=== PATIENT | male | born 1980 | race African-American/Black ===

== ENCOUNTER 2025-01-03 16:40 | Inpatient (IN) | payer OTHER ==
[~2025-01-03] VITALS: Ht 180.3 cm; Wt 122.0 kg
[2025-01-03] MEDS: LORazepam 2 MG/ML VIAL IM ONE (17:07)
[2025-01-03] MEDS: MIDAZOLAM HCL 5 MG/ML VIAL IM ONE (18:34)
[2025-01-03] MEDS: SODIUM CHLORIDE 0.9% 1,000 ML IV ONE ×2 (19:30→20:58)
[2025-01-03 19:36] LABS: PLATELET COUNT (AUTO) 291 K/uL (150-450); RED BLOOD CELL COUNT(AUTO) 4.78 MIL/uL (4.50-5.90); RED CELL DISTRIBUTION WIDTH 15.3 % (11.5-14.5); WHITE BLOOD COUNT (AUTO) 12.9 K/uL (4.5-11.0)
[2025-01-03 19:45] LABS: CALCIUM, TOTAL 9.3 mg/dL (8.8-10.5); CREATININE 1.04 mg/dL (0.60-1.30); GLOMERULAR FILTR. RATE CALC > 60 mL/min (>60); GLUCOSE,RANDOM 87 mg/dL (70-110); SODIUM SERUM 146 mmol/L (136-145); UREA NITROGEN, BLOOD 20 mg/dL (7-18)
[2025-01-03 19:46] LABS: ALCOHOL, BLOOD (SERUM) < 3 mg/dL (0-10)
[2025-01-03 19:53] LABS: RBC MORPHOLOGY COMMENT NORMAL RBC MORPH
[2025-01-03 19:55] LABS: TROPONIN I-HIGH SENSITIVITY 73 ng/L (<76)
[2025-01-03 19:57] LABS: ASPARTATE AMINOTRANSFERASE 64 U/L (15-37); TOTAL PROTEIN, SERUM 7.6 g/dL (6.4-8.2)
[2025-01-03 20:49] LABS: CREATINE KINASE, TOTAL ONLY 3723 U/L (39-308)
[2025-01-03 20:55] LABS: APPEARANCE,URINE CLEAR (CLEAR); GLUCOSE, URINE (UA) NEGATIVE (NEGATIVE); LEUKOCYTE ESTERASE ,URINE NEGATIVE (NEGATIVE); NITRATE,URINE NEGATIVE (NEGATIVE); OCCULT BLOOD,URINE MODERATE (NEGATIVE); PH,URINE DRUG SCREEN 5.5 (5.0-8.0); SPECIFIC GRAVITIY, URINE 1.022 (1.003-1.030)
[2025-01-03 21:03] LABS: ALCOHOL, URINE DRUG SCREEN NEGATIVE (NEGATIVE); AMPHET/METH SCREEN,URINE NEGATIVE (NEGATIVE); BARBITURATE SCREEN, URINE NEGATIVE (NEGATIVE); CANNABINOID SCREEN,URINE NEGATIVE (NEGATIVE); COCAINE SCREEN,URINE NEGATIVE (NEGATIVE); METHADONE SCREEN, URINE NEGATIVE (NEGATIVE)
[2025-01-03 21:28] LABS: SQUAMOUS EPITHELIAL CELL,UR Rare /LPF (None Seen)
[2025-01-03] MEDS ORDERED: ACETAMINOPHEN 325 MG TABLET PO PRN (21:30)
[2025-01-03] MEDS ORDERED: BISACODYL 10 MG RECTAL RECTAL SUPPOSITORY PR PRN (21:30)
[2025-01-03] MEDS ORDERED: ONDANSETRON HCL 4 MG/2 ML VIAL IVP PRN (21:30)
[2025-01-03] MEDS ORDERED: MAGNESIUM HYDROXIDE SUSPENSION 30 ML UDCUP PO PRN (21:30)
[2025-01-03] MEDS ORDERED: ZOLPIDEM TARTRATE 5 MG TABLET PO PRN (21:30)
[2025-01-03] MEDS: MAGNESIUM SULFATE 2 GM, MVI, ADULT NO.1 WITH VIT K 10 ML, THIAMINE 100 MG, FOLIC ACID 1... IV ONE (22:20)
[2025-01-03] MEDS: HEPARIN SODIUM,PORCINE 5,000 UNITS/ML VIAL SQ SCH (23:35)
[2025-01-04] VITALS (8 sets, daily range): BP systolic 132–165; BP diastolic 71–110; PULSE 71–86; RESP 19–22; TEMP 97.5–98.2; O2SAT 98–100
[2025-01-04 06:14] LABS: PLATELET COUNT (AUTO) 273 K/uL (150-450); RED BLOOD CELL COUNT(AUTO) 4.69 MIL/uL (4.50-5.90); RED CELL DISTRIBUTION WIDTH 14.9 % (11.5-14.5); WHITE BLOOD COUNT (AUTO) 7.3 K/uL (4.5-11.0)
[2025-01-04 06:24] LABS: CALCIUM, TOTAL 8.5 mg/dL (8.8-10.5); CREATININE 0.72 mg/dL (0.60-1.30); GLOMERULAR FILTR. RATE CALC > 60 mL/min (>60); GLUCOSE,RANDOM 93 mg/dL (70-110); SODIUM SERUM 146 mmol/L (136-145); UREA NITROGEN, BLOOD 10 mg/dL (7-18)
[2025-01-04] MEDS ORDERED: LORazepam 2 MG/ML VIAL IVP PRN (06:45)
[2025-01-04] MEDS: DOCUSATE SODIUM 100 MG CAPSULE PO SCH (08:09)
[2025-01-04] MEDS: PANTOPRAZOLE SODIUM 40 MG DR TABLET PO SCH (08:09)
[2025-01-05] MEDS: POTASSIUM CHLORIDE 20 MEQ ER TABLET PO ONE (01:01)
[2025-01-05 05:06] VITALS: BP 124/74; PULSE 87; RESP 18; TEMP 98.2; O2SAT 97
[2025-01-05 06:27] LABS: PLATELET COUNT (AUTO) 267 K/uL (150-450); RED BLOOD CELL COUNT(AUTO) 4.67 MIL/uL (4.50-5.90); RED CELL DISTRIBUTION WIDTH 15.0 % (11.5-14.5); WHITE BLOOD COUNT (AUTO) 5.3 K/uL (4.5-11.0)
[2025-01-05 06:36] LABS: CALCIUM, TOTAL 8.6 mg/dL (8.8-10.5); CREATININE 0.80 mg/dL (0.60-1.30); GLOMERULAR FILTR. RATE CALC > 60 mL/min (>60); GLUCOSE,RANDOM 147 mg/dL (70-110); SODIUM SERUM 141 mmol/L (136-145); UREA NITROGEN, BLOOD 11 mg/dL (7-18)
[2025-01-05 08:49] VITALS: BP 133/89; PULSE 73; RESP 20; TEMP 97.9; O2SAT 100
[2025-01-05 12:35] VITALS: BP 139/76; PULSE 75; RESP 20; TEMP 98; O2SAT 100
== END 2025-01-05 13:50 | disposition home or self-care (01) | DRG 917 ==
LOC: EMS 16:44 → EDH 21:25 → 5S 01-04 00:50
PROVIDERS: ADMIT Internal Medicine; ATTEND Internal Medicine
DX: T40.991A Poisoning by other psychodysleptics [hallucinogens], accidental (unintentional), initial encounter (principal); G92.9 Unspecified toxic encephalopathy; M62.82 Rhabdomyolysis; F29 Unspecified psychosis not due to a substance or known physiological condition; F19.10 Other psychoactive substance abuse, uncomplicated; E87.0 Hyperosmolality and hypernatremia; E87.1 Hypo-osmolality and hyponatremia; E87.6 Hypokalemia; R00.0 Tachycardia, unspecified; Y92.89 Other specified places as the place of occurrence of the external cause; Z87.891 Personal history of nicotine dependence
CPT/HCPCS: 71045; 80048; 80076; 80307; 81001; 82550; 83880; 84484; 85025; 85610; 85730; 93005; 96361; 96365; 96366; 96372; 99291; G0378; G0480; G0481; J1200; J1630; J1644; J2060; J2250; J3411; J3475; J3490; J7030; 36415-L1; 36415-TC